=== PATIENT | male | born 1950 | race Caucasian/White ===

== ENCOUNTER → 2016-09-14 | Outpatient (CLI) | payer BC | END | disposition home or self-care (01) | LOC: PCVCCLINIC 10:40 | PROVIDERS: ATTEND Internal Medicine Cardiovascular Disease | DX: I48.0 Paroxysmal atrial fibrillation (principal); I10 Essential (primary) hypertension; I42.9 Cardiomyopathy, unspecified; I45.10 Unspecified right bundle-branch block; I49.3 Ventricular premature depolarization; I44.4 Left anterior fascicular block; E78.5 Hyperlipidemia, unspecified; R00.2 Palpitations; Z87.891 Personal history of nicotine dependence; Z79.82 Long term (current) use of aspirin | CPT/HCPCS: 80061; 93005; G0463 ==

== ENCOUNTER → 2016-11-25 | Outpatient (CLI) | payer BC ==
--- NOTE | 2016-11-25 10:02 | PCVCIMAG ---
APPROVED REPORT Study performed: 11/25/2016 09:07:37 EXAM: Comprehensive 2D, Doppler, and color-flow Echocardiogram Status: routine BSA: 2.33 HR: 98 bpmBP: 158/90 mmHg Other Information Study Quality: Good Indications Afib. PVC's. Hypertension. Cardiomyopathy. 2D Dimensions IVSd: 13.32 (7-11mm)LVOT Diam: 23.42 (18-24mm) LVDd: 45.89 mm PWd: 14.73 (7-11mm)Ascending Ao: 28.64 (22-36mm) LVDs: 39.37 (25-40mm) Left Atrium: 46.13 (27-40mm) Aortic Root: 32.01 mm LV Single Plane 4CH: 35.40 % LV Single Plane 2CH: 42.94 %Crum's LVEF: 39.17 % Biplane EF: 39.5 % Volumes Left Atrial Volume (Systole) Single Plane 4CH: 74.45 mLSingle Plane 2CH: 55.42 mL LA ESV Index: 29.00 mL/m2 Aortic Valve LVOT Max P.50 mmHg LVOT Max V: 0.89 m/s Mitral Valve E/A Ratio: 1.1 MV Decel. Time: 660.18 ms MV E Max Reji.: 1.08 m/s MV A Reji.: 1.01 m/s Pulmonary Valve PV Peak Gr.: 3.07 mmHg Tricuspid Valve TR Peak Reji.: 2.44 m/s TR Peak Gr.: 23.89 mmHg Left Ventricle The left ventricle is normal size. There is normal LV segmental wall motion. There is normal left ventricular wall thickness. Left ventricular systolic function is moderately decreased. LVEF is 35-40%. The left ventricular diastolic function is normal. Right Ventricle The right ventricle is normal size. The right ventricular systolic function is normal. Atria The left atrium size is normal. The right atrium size is normal. Aortic Valve The aortic valve is normal in structure. No aortic regurgitation is present. There is no aortic valvular stenosis. Mitral Valve The mitral valve is normal in structure. Mild mitral regurgitation. No evidence of mitral valve stenosis. Tricuspid Valve The tricuspid valve is normal in structure. Trace tricuspid regurgitation. Pulmonary artery pressure is 31mmhg. Pulmonic Valve The pulmonary valve is normal in structure. There is no pulmonic valvular regurgitation. Great Vessels The aortic root is normal in size. IVC is normal in size and collapses with >50% inspiration Pericardium There is no pericardial effusion. <Conclusion> The left ventricle is normal size. Left ventricular systolic function is moderately decreased. LVEF is 35-40%. The left ventricular diastolic function is normal. The right ventricle is normal size. The left atrium size is normal. The aortic valve is normal in structure. Mild mitral regurgitation. Trace tricuspid regurgitation. Pulmonary artery pressure is 31mmhg. There is no pericardial effusion.
== END | disposition home or self-care (01) ==
LOC: PCVCIMAG 08:42
PROVIDERS: ATTEND Internal Medicine Cardiovascular Disease
DX: I08.1 Rheumatic disorders of both mitral and tricuspid valves (principal); I44.4 Left anterior fascicular block; I48.91 Unspecified atrial fibrillation; I42.9 Cardiomyopathy, unspecified; I10 Essential (primary) hypertension; I49.3 Ventricular premature depolarization; I45.10 Unspecified right bundle-branch block; Z79.899 Other long term (current) drug therapy; Z87.891 Personal history of nicotine dependence
CPT/HCPCS: 36415; 93005; 93306; G0463

== ENCOUNTER → 2016-11-30 | Outpatient (CLI) | payer BC ==
[~2016-11-30] MED LIST: DIAZEPAM 10 MG TABLET. ONE; IOHEXOL 350 MG/ML 100 ML VIAL. ONE; IOHEXOL 350 MG/ML 50 ML VIAL. ONE; IV NORMAL SALINE 1000ML BAG 1,000 ML ONE; LIDOCAINE 1% Multi-Dose 20 ML VIAL. ONE; MIDAZOLAM HCL/PF 2 MG/2 ML VIAL. ONE; fentaNYL PF VIAL 100 MCG/2 ML VIAL ONE
--- NOTE | 2016-12-09 11:55 | PCVCINTER ---
APPROVED REPORT Patient Details Patient Status: Room #: 3 The patient is a 66 year-old Male Event Personnel Rambo Pearl MD, Rosemary Escobedo MD, Arian Parnell RN, Fransisco Nguyen RT(R)(), Sabi Robert RT(R) Risk Factors Arterial HypertensionDysplipidemia (Type: 0), Last Creatanine 1Tobacco History (Former) Procedure Narrative The patient was brought electively to the Cardiac Catheterization Laboratory and was prepped and draped in a sterile manner. The left femoral was infiltrated with 1% Lidocaine subcutaneous anesthesia. The right femoral accessed via ultrasound guidance. A Right Heart Catheterization was performed with a 6 Fr. [place] catheter and pressure were recorded. Cardiac outputs were obtained by the Thermal Dilution method. A sheath was inserted into the right femoral artery. Coronary angiography was performed using coronary diagnostic catheters. The right coronary system was accessed and visualized with a Diagnostic catheter. The left coronary system was accessed and visualized with a Diagnostic catheter. The left ventricle was accessed and visualized with a Diagnostic catheter. An aortogram of the ascending aorta was performed. Pre-demployment femoral angiogram was performed . Closure device was deployed with a 6 Fr Mynx. Hemostasis was obtained with manual pressure following sheath removal without any complications. The patient tolerated the procedure well and there were no complications associated with the procedure. There was no hematoma. Hemodynamics The right atrial mean pressure is 14 mmHg. The right ventricular pressure is 41/13 mmHg. The pulmonary artery pressure is 32/31 mmHg with a mean of 26 mmHg. The mean pulmonary capillary wedge pressure is 24 mmHg. The aortic pressure is 138/61 mmHg with a mean of 98 mmHg. The left ventricular pressure is 160/102 mmHg with a mean of 104 mmHg. The cardiac output and index were assessed using Thermal. The cardiac output using thermo method is 4.43 L/min. The cardiac index using thermo method is 1.9 L/min/m2. Conclusion #1 supravalvular aortic root normal in caliber with trivial aortic insufficiency #2 abdominal aorta normal in caliber no aneurysm single bilateral renal arteries and iliac system widely patent #3 left main free of disease giving rise to LAD and circumflex #4 LAD with mild irregularities 3040% proximal smooth narrowing LAD extends to the apex #5 circumflex OM nondominant 1 large moderate size OM branch free of disease #6 dominant right coronary artery free of disease #7 successful right heart catheterization performed as stated above Recommendations and plan continue aggressive risk factor modification no lifting for 48 hours no line tub Jacuzzi or Celaya for a week
== END | disposition home or self-care (01) ==
LOC: PCVCINTER 10:51
PROVIDERS: ATTEND Internal Medicine Cardiovascular Disease
DX: I35.1 Nonrheumatic aortic (valve) insufficiency (principal); I27.0 Primary pulmonary hypertension; E78.5 Hyperlipidemia, unspecified
CPT/HCPCS: 75625; 93460; 99152; 99153; C1751; C1760; C1769; C1894; J1644; J2250; J3010; J7030; Q9967

== ENCOUNTER → 2017-03-28 | Outpatient (CLI) | payer BC | END | disposition home or self-care (01) | LOC: PCVCIMAG 10:19 | DX: I48.91 Unspecified atrial fibrillation (principal); I10 Essential (primary) hypertension; I42.9 Cardiomyopathy, unspecified; I49.3 Ventricular premature depolarization | CPT/HCPCS: 93306 ==